=== PATIENT | male | born 1980 | race Caucasian/White ===

== ENCOUNTER 2016-11-29 16:11 | Emergency (ER) | payer BC ==
[2016-11-29] MEDS ORDERED: DIPH,PERTUSS(ACELL),TET VAC/PF 0.5 ML VIAL IM ONE (16:43)
--- NOTE | 2016-11-29 19:45 | ER NURSING DOCUMENTATION ---
Nurse's Notes [facility] Name:Denis Manzo Age:36 yrs Sex:Male :1980 Arrival Date:11/29/2016 Time:16:11 Bed2 Private MD: Diagnosis:Finger Laceration Presentation: 11/29 16:22 Presenting complaint: Patient states: L hand laceration. Transition of care: Home. lp Complicating Factors: There are no complicating factors for this patient. 16:22 Acuity: KARRIE 3 lp 16:22 Method Of Arrival: Private Vehicle lp 16:23 Notified ED Physician of Dr. Oquendo notified. lp Triage Assessment: 16:23 Compartment Syndrome symptoms: Unable to determine. General: Appears in no apparent lp distress, Behavior is appropriate for age. Pain: Denies pain. Injury Description: Laceration sustained to left hand. Historical: - Allergies: No known drug Allergies; - Home Meds: 1. None - PMHx: None; - PSHx: VASECTOMY; - Tetanus: > 10 years. - Ebola Screening: : Patient negative for fever greater than or equal to 101.5 degrees Fahrenheit, and additional compatible Ebola Virus Disease symptoms. Patient denies exposure to infectious person. Patient denies travel to an Ebola-affected area in the 21 days before illness onset. . - Immunization history: Flu Vaccine < 1 year. - Social history: Smoking status: Patient uses tobacco products, current every day smoker. Screenin:24 Infectious Disease Risk None. Abuse screen: Denies threats or abuse. Denies injuries lp from another. Nutritional screening: No deficits noted. Assessment: 16:24 See Triage Assessment done by same RN. lp 16:25 Injury Description: Laceration is not bleeding. lp 16:25 Musculoskeletal: No deficits noted. lp Vital Signs: 16:23 BP 138 / 98; Pulse 96; Resp 16; Temp 98.4(TE); Pulse Ox 96% on R/A; Weight 61.23 kg; lp Height 5 ft. 6 in. (167.64 cm); Pain 0/10; 16:23 Body Mass Index 21.79 (61.23 kg, 167.64 cm) lp ED Course: 16:12 Patient arrived in ED. ama 16:16 García Oquendo MD is Attending Physician. tl1 16:22 Radha Pastor, ZORAIDA is Primary Nurse. lp 16:23 Triage completed. lp 16:[address] Oquendo notified. lp 16:24 Valuables Remains with patient Patient has correct armband on for positive lp identification. Bed in low position. Call light in reach. 19:22 Manuel Menjivar DO, Cl Oliver MD is Referral Physician. tl1 19:44 Nick wrap to left hand. bw2 Administered Medications: 16:33 Drug: Tetanus-Diphtheria Toxoid Adult 0.5 ml; {Automobile Brakes Bonder: [employer] ([employer]). lp Exp: 08/10/2018. Lot #: [id number]. } Route: IM; Site: left deltoid; Outcome: 19:23 Discharge ordered by . tl1 19:44 Discharged to home ambulatory, with friend. bw2 19:44 Condition: good 19:44 Discharge Assessment: Patient awake, alert and oriented x 3. No cognitive and/or functional deficits noted. Patient verbalized understanding of disposition instructions. 19:44 Discharge instructions given to patient, Instructed on discharge instructions, follow up and referral plans. medication usage, Demonstrated understanding of instructions, medications, Prescriptions given X 1. 19:44 Patient left the ED. bw2 Signatures: Radha Pastor RN RN Javier Krishnan, Reg Reg García Sue MD MD tl1 Ariadna Lamb bw2
--- NOTE | 2016-11-29 19:45 | ER PHYSICIAN DOCUMENTATION ---
Physician Documentation [facility] Name:Denis Manzo Age:36 yrs Sex:Male :1980 Arrival Date:11/29/2016 Time:16:11 Bed2 Private MD: García Cowan Disposition: 12/01 10:49 Chart complete. tl1 Disposition: 11/29/16 19:23 Discharged to Home/Self Care. Impression: Finger Laceration. - Condition is Good. - Discharge Instructions: FINGER LACERATION - LACERATION, Hand. - Prescriptions for Keflex 500 mg Oral - take 1 capsule by ORAL route every 6 hours for 5 days; 20 capsule. - Medical Reconciliation form form. - Follow up: Manuel Menjivar DO, Cl Oliver MD; When: 4- 6 days; Reason: Recheck today's complaints, Continuance of care. - Problem is new. - Symptoms have improved. HPI: 11/29 16:16 This 36 yrs old Male presents to ER with complaints of Laceration To Hand - tl1 RIGHT. 12/01 10:41 The patient has a laceration related to: working, occurred outdoors. The laceration(s) tl1 is(are) located on the dorsal aspect of proximal phalanx of right ring finger. Onset: The symptom(s)/episode began/occurred suddenly, just prior to arrival. Associated signs and symptoms: The patient has no apparent associated signs or symptoms. He was working with a [employer] fence and brushed his right hand against a sharp edge, sustaining a laceration. No other injury.. Historical: - Allergies: No known drug Allergies; - Home Meds: 1. None - PMHx: None; - PSHx: VASECTOMY; - Tetanus: > 10 years. - Ebola Screening: : Patient negative for fever greater than or equal to 101.5 degrees Fahrenheit, and additional compatible Ebola Virus Disease symptoms. Patient denies exposure to infectious person. Patient denies travel to an Ebola-affected area in the 21 days before illness onset. . - Immunization history: Flu Vaccine < 1 year. - Social history: Smoking status: Patient uses tobacco products, current every day smoker. ROS: 11/29 17:00 Skin: Positive for laceration(s). tl1 Exam: 17:00 Musculoskeletal/extremity: Extremities: grossly normal except: noted in the dorsal tl1 aspect of proximal phalanx of right ring finger: Circulation is intact in all extremities. Sensation intact. Joints: All joints appear normal with full range of motion. Tendon exam: postive for partial tendon laceration on the ulnar aspect, roughly 2 mm tam in what appears to be the distal aspect of the dorsal bautista.. 17:00 Constitutional: The patient appears in no acute distress, alert, awake, comfortable. 17:00 Cardiovascular: Rate: normal. 17:00 Respiratory: Respirations: normal. 17:00 Skin: injury, laceration(s), that can be described as clean, no foreign body, linear, without bleeding, 12 mm long. Vital Signs: 16:23 BP 138 / 98; Pulse 96; Resp 16; Temp 98.4(TE); Pulse Ox 96% on R/A; Weight 61.23 kg; lp Height 5 ft. 6 in. (167.64 cm); Pain 0/10; 16:23 Body Mass Index 21.79 (61.23 kg, 167.64 cm) lp Laceration: 17:00 Wound Repair of 1.2cm ( 0.5in ) subcutaneous laceration to dorsal aspect of proximal tl1 phalanx of right ring finger. Linear shaped.. Distal neuro/vascular/tendon intact. Anesthesia: Wound infiltrated with 1.5 mls of 0.5% marcaine, Wound infiltrated with 1.5 mls of 0.5% marcaine. Wound prep: Extensive cleansing with hibiclenz, Wound irrigation with saline, Copious irrigation. Skin closed with 4-0 Ethilon using Interrupted sutures. Dressed with Bacitracin, Kerlix. Patient tolerated well. MDM: 16:16 Patient medically screened. tl1 19:30 Data reviewed: and as a result, I will discharge patient. tl1 11/29 19:27 Order name: ORTHO: Splint; Complete Time: 19:44 tl1 Dispensed Medications: 16:33 Drug: Tetanus-Diphtheria Toxoid Adult 0.5 ml; {Jar Filler: [employer] Paste[employer] ([employer]). lp Exp: 08/10/2018. Lot #: [id number]. } Route: IM; Site: left deltoid; Signatures: Radha Pastor RN RN lp Leigh, Tom, MD MD 1 Ariadna Lamb bw2
== END 2016-11-29 19:45 | disposition home or self-care (01) ==
LOC: ER 16:11
DX: S61.214A Laceration without foreign body of right ring finger without damage to nail, initial encounter (principal); W26.8XXA Contact with other sharp object(s), not elsewhere classified, initial encounter; Y92.89 Other specified places as the place of occurrence of the external cause; Y93.H9 Activity, other involving exterior property and land maintenance, building and construction; F17.210 Nicotine dependence, cigarettes, uncomplicated; Z23 Encounter for immunization
CPT/HCPCS: 12041; 90471; 99283